=== PATIENT | female | born 2000 | race Caucasian/White ===

== ENCOUNTER 2018-03-15 20:05 | Emergency (ER) | payer OTHER ==
[~2018-03-15] VITALS: Ht 155.6 cm; Wt 57.0 kg
[2018-03-15 20:19] VITALS: TEMP 38.3; Ht 155.6 cm; Wt 57.0 kg
[2018-03-15] MEDS ORDERED: SODIUM CHLORIDE 0.9% 1000ML 1,000 ML IV STA ×2 (20:32)
[2018-03-15] MEDS ORDERED: BCPILLS PO (20:46)
[2018-03-15] MEDS ORDERED: PSEU30TA3 PO (20:46)
[2018-03-15] MEDS ORDERED: OSEL45CA PO (20:46)
[2018-03-15] MEDS ORDERED: MULTTAB PO (20:46)
[2018-03-15] MEDS ORDERED: IBUP-1050 PO (20:46)
[2018-03-15] MEDS ORDERED: ONDANSETRON INJ 2 MG/ML 2 ML VIAL IV STA (20:50)
[2018-03-15 21:07] LABS: HEMATOCRIT 39.6 % (37-47); HEMOGLOBIN 13.5 g/dL (12.0-16.0); MEAN CELL VOLUME 85.5 fL (80-100); MEAN CORPUSCULAR HEMOGLOBIN 29.2 pg (25-34); MEAN CORPUSCULAR HGB CONC 34.1 g/dl (32-36); MEAN PLATELET VOLUME 10.7 fL (7.4-10.4); PLATELET COUNT 240 K/uL (130-400); RED CELL DISTRIBUTION WIDTH CV 13.3 % (11.5-14.5); RED CELL DISTRIBUTION WIDTH SD 41.9 fL (36.4-46.3); WHITE BLOOD COUNT 9.01 K/uL (4.8-10.8)
[2018-03-15 21:29] LABS: ALBUMIN 3.8 gm/dl (3.4-5.0); CALCIUM 8.9 mg/dl (8.5-10.1); CREATININE 0.96 mg/dl (0.60-1.20); POTASSIUM 3.7 mmol/L (3.5-5.1)
[2018-03-15 21:32] LABS: TOTAL PROTEIN 8.3 gm/dl (6.4-8.2)
[2018-03-15 21:35] LABS: BASO % 0.2 %; BASO ABS # 0.02 K/uL (0-0.2); EOS % 0.1 %; EOS ABS # 0.01 K/uL (0-0.5); IG# 0.02 K/uL (0.00-0.02); LYMPH % 14.7 %; LYMPH ABS # 1.32 K/uL (1.2-3.4); MONO % 10.4 %; MONO ABS # 0.94 K/uL (0.11-0.59); NEUT % 74.4 %
[2018-03-15 21:47] LABS: INFLUENZA B ANTIGEN Neg for Influ B (NEG)
[2018-03-15] MEDS ORDERED: KETOROLAC TROMETHAMINE 30 MG/ML VIAL IV STA (22:06)
[2018-03-15] MEDS ORDERED: ACETAMINOPHEN 500 MG TAB PO STA (22:06)
[2018-03-15] MEDS ORDERED: AMOXICILLIN 250 MG CAP PO STA (22:28)
--- NOTE | 2018-03-15 22:28 | EMERGENCY ROOM VISIT NOTE ---
History Report prepared by Blanche: Prema Goss Under the Supervision of: Dr. Mynor Che M.D. First contact with patient: 20:31 Chief Complaint: FEVER Stated Complaint: FEVER,VOMITING SINCE 8:30 LAST NIGHT History of Present Illness The patient is a 17 year old female who presents to the Emergency Room with complaints of worsening generalized illness beginning on Wednesday, two days ago. The patient reports a fever, body aches, nasal congestion, abdominal pain, nausea, sorethroat, and a productive cough. She reports she was seen by [facility] yesterday who clinically diagnosed her with the flu and was given Tamiflu. The patient reports she has been vomiting since 8:30pm last night. She reports she started vomiting an hour after she took the Tamiflu. The patient took Motrin this morning. The patient is on control. She denies any allergies to medications. Pt denies LOC, headache, diaphoresis, visual changes, neck pain, chest pain, breathing difficulties, back pain, melena, hematochezia, urinary symptoms, numbness, weakness, lymphadenopathy, rash, or other complaints. Source of History: patient Onset: two days ago Position: other (generalized) Quality: other (illness) Timing: worsening Associated Symptoms: + fevers, + sorethroat, + cough, + nausea, + vomiting, + abdominal pain Review of Systems See HPI for pertinent positives and negatives. A total of ten systems were reviewed and were otherwise negative. Past Medical & Surgical Medical Problems: (1) No Known Active Medical Problems Family History Patient reports no known family medical history. Social History Smoking Status: Never Smoker Housing Status: lives with roommate Occupation Status: [place] [place] [employer] student Current/Historical Medications Scheduled Amoxicillin (Amoxil), 500 MG PO TID Control Pills ( Control Pills), 1 TAB PO DAILY Multivitamins/Minerals (Mvi With Minerals), 1 TAB PO DAILY Oseltamivir Phosphate (Tamiflu), 1 TAB PO BID Pseudoephedrine Hcl (Sudafed Nasal Decongestan), 1 TAB PO PRN UD Scheduled PRN Ibuprofen (Advil), 400 MG PO Q6 PRN for Pain or Fever Physical Exam Vital Signs Date Time Temp Pulse Resp B/P (MAP) Pulse Ox O2 Delivery O2 Flow Rate FiO2 03/15/18 23:07 93 114/61 98 03/15/18 22:14 95 126/64 98 Room Air 03/15/18 20:19 38.3 128 18 121/78 98 Room Air Physical Exam GENERAL: Awake, alert, mildly ill appearing, no distress HEAD: Normocephalic, atraumatic. No edema. EYES: Normal conjunctiva. Sclera non-icteric. EARS: Right TM normal. Left TM normal. NOSE: Mild congestion. OROPHARYNX: Lips, tongue, and mucosa unremarkable. No erythema or exudate. NECK: Supple. No nuchal rigidity. FROM. No adenopathy. Negative jolt accentuation test. RESPIRATORY: CTA bilaterally. No wheezes rales or rhonchi. Normal respiratory effort. CARDIAC: Borderline tachycardic rate. Normal rhythm. No murmurs. No rubs. GI: mild epigastric tenderness, no RUQ tenderness, no rebound, no guarding. NEURO: Normal sensorium. Normal speech. SKIN: No rash or jaundice noted. Medical Decision & Procedures Laboratory Results 03/15/18 20:45 Red Blood Count 4.63, Mean Corpuscular Volume 85.5, Mean Corpuscular Hemoglobin 29.2, Mean Corpuscular Hemoglobin Concent 34.1, Mean Platelet Volume 10.7, Neutrophils (%) (Auto) 74.4, Lymphocytes (%) (Auto) 14.7, Monocytes (%) (Auto) 10.4, Eosinophils (%) (Auto) 0.1, Basophils (%) (Auto) 0.2, Neutrophils # (Auto ) 6.70, Lymphocytes # (Auto) 1.32, Monocytes # (Auto) 0.94, Eosinophils # (Auto ) 0.01, Basophils # (Auto) 0.02 03/15/18 20:45 Test 03/15/18 20:35 03/15/18 20:45 03/15/18 20:47 Urine Color DK YELLOW Urine Appearance CLOUDY (CLEAR) Urine pH 5.0 (4.5-7.5) Urine Specific [place] 1.029 (1.000-1.030) Urine Protein 1+ (NEG) Urine Glucose (UA) NEG (NEG) Urine Ketones 3+ (NEG) Urine Occult Blood 2+ (NEG) Urine Nitrite NEG (NEG) Urine Bilirubin NEG (NEG) Urine Urobilinogen NEG (NEG) Urine Leukocyte Esterase MODERATE (NEG) Urine WBC (Auto) >30 /hpf (0-5) Urine RBC (Auto) 5-10 /hpf (0-4) Urine Hyaline Casts (Auto) 10-30 /lpf (0-5) Urine Epithelial Cells (Auto) >30 /lpf (0-5) Urine Bacteria (Auto) 2+ (NEG) White Blood Count 9.01 K/uL (4.8-10.8) Red Blood Count 4.63 M/uL (4.2-5.4) Hemoglobin 13.5 g/dL (12.0-16.0) Hematocrit 39.6 % (37-47) Mean Corpuscular Volume 85.5 fL (80-100) Mean Corpuscular Hemoglobin 29.2 pg (25-34) Mean Corpuscular Hemoglobin Concent 34.1 g/dl (32-36) Platelet Count 240 K/uL (130-400) Mean Platelet Volume 10.7 fL (7.4-10.4) Neutrophils (%) (Auto) 74.4 % Lymphocytes (%) (Auto) 14.7 % Monocytes (%) (Auto) 10.4 % Eosinophils (%) (Auto) 0.1 % Basophils (%) (Auto) 0.2 % Neutrophils # (Auto) 6.70 K/uL (1.4-6.5) Lymphocytes # (Auto) 1.32 K/uL (1.2-3.4) Monocytes # (Auto) 0.94 K/uL (0.11-0.59) Eosinophils # (Auto) 0.01 K/uL (0-0.5) Basophils # (Auto) 0.02 K/uL (0-0.2) RDW Standard Deviation 41.9 fL (36.4-46.3) RDW Coefficient of Variation 13.3 % (11.5-14.5) Immature Granulocyte % (Auto) 0.2 % Immature Granulocyte # (Auto) 0.02 K/uL (0.00-0.02) Ovalocytes 1+ Anion Gap 8.0 mmol/L (3-11) Est Creatinine Clear Calc Drug Dose 72.0 ml/min Estimated GFR () 99.4 Estimated GFR (Non- 85.7 BUN/Creatinine Ratio 12.2 (10-20) Calcium Level 8.9 mg/dl (8.5-10.1) Total Bilirubin 0.4 mg/dl (0.2-1) Direct Bilirubin 0.1 mg/dl (0-0.2) Aspartate Amino Transf (AST/SGOT) 16 U/L (15-37) Alanine Aminotransferase (ALT/SGPT) 16 U/L (12-78) Alkaline Phosphatase 47 U/L (45-117) Total Protein 8.3 gm/dl (6.4-8.2) Albumin 3.8 gm/dl (3.4-5.0) Lipase 276 U/L (73-393) Human Chorionic Gonadotropin, Qual NEG (NEG) Influenza Type A Antigen Neg for Influ A (NEG) Influenza Type B Antigen Neg for Influ B (NEG) Laboratory results reviewed by me Medications Administered Medications (Trade) Dose Ordered Sig/Radha Route Start Time Stop Time Status Last Admin Dose Admin Sodium Chloride 1,000 ml @ 125 mls/hr Q8H STAT IV 03/15/18 20:32 03/16/18 04:31 03/15/18 21:25 125 MLS/HR Sodium Chloride 1,000 ml @ 999 mls/hr Q1H1M STAT IV 03/15/18 20:32 03/15/18 21:32 DC 03/15/18 20:51 999 MLS/HR Ondansetron HCl (Zofran Inj) 4 mg NOW STAT IV 03/15/18 20:50 03/15/18 20:51 DC 03/15/18 20:58 4 MG Ketorolac Tromethamine (Toradol Inj) 15 mg NOW STAT IV 03/15/18 22:06 03/15/18 22:07 DC 03/15/18 22:12 15 MG Acetaminophen (Tylenol Tab) 1,000 mg NOW STAT PO 03/15/18 22:06 03/15/18 22:08 DC 03/15/18 22:11 1,000 MG Amoxicillin (Amoxil Cap) 1,000 mg NOW STAT PO 03/15/18 22:28 03/15/18 22:31 DC 03/15/18 22:41 1,000 MG Ondansetron HCl (ZOFRAN ODT 4MG Home Pack) 1 homepack UD ONCE PO 03/15/18 22:45 03/15/18 22:46 DC 03/15/18 22:41 1 HOMEPACK ED Course 2043: The patient was evaluated in room C4. A complete history and physical exam was performed. 2031: Ordered Sodium Chloride 1000 ml @ 999 mls/hr IV, Sodium Chloride 1000 ml @ 125 mls/hr IV. 2049: Ordered Zofran Inj 4 mg IV. 2131: I updated the patient on her test results. She is feeling much better. Abdominal pain resolved. We will do a PO challenge. 2209: Patient was reevaluated. She is doing well with her oral challenge. Tylenol and Toradol were given for her fever. Her mother called and the patient gave permission to speak to her. I discussed the patient's history, presentation, treatment and recommended outpatient course with her. She felt comfortable with this. I gave my usual and customary discussion regarding this issue. Medical Decision Triage Nursing notes reviewed and agree them. Additional history obtained from the patient's mother. The patient's history was concerning for fever, vomiting, and recent initiation of Tamiflu for suspected influenza. Differential diagnosis: Etiologies such as influenza, upper respiratory infection, viral syndrome, sinusitis,otitis, pharyngitis, pneumonia,meningitis, urinary tract infection, sepsis, bacteremia, medication side effect, gastroenteritis, as well as others were entertained. Physical examination: As above. Benign abdomen. Moderate nasal congestion present. Ears and throat unremarkable. ER treatment provided: IV normal saline IV Zofran On reassessment the patient felt better. Oral Tylenol IV Toradol 15 mg On reassessment the patient was doing well. Oral amoxicillin Diagnostics interpreted by me: The labs revealed an unremarkable CBC and chemistry panel. The patient's influenza testing is negative. She has findings concerning for UTI. She is not . Imaging studies: Deferred The patient has flulike symptoms but appears to also have UTI. She will be treated with amoxicillin. This will cover her sinuses as well as her urine. Chest imaging was felt to be unnecessary as she has really minimal pulmonary symptoms at this time. She may have had the vomiting related to the Tamiflu. She has a benign abdomen. Her vomiting stopped with the Zofran. She will be sent home with Zofran. She will stop the Tamiflu. I discussed this with her and her mother. They felt comfortable with the plan. By the evaluation outlined above emergent etiologies such as otitis, pharyngitis, pneumonia, meningitis, intra-abdominal infection, sepsis, bacteremia, as well as others were deemed relatively unlikely. The patient and mother were informed about the findings as listed above. All questions were answered and they were pleased with the treatment. Return instructions were outlined and the patient was discharged in stable condition. Outpatient prescription management: Amoxicillin Zofran Referral: The patient was referred back to her primary care physician for follow-up in 1- 2 days for a recheck of the current condition. Medication Reconcilliation Current Medication List: was personally reviewed by me Blood Pressure Screening Patient's blood pressure: Normal blood pressure Impression Primary Impression: Fever Additional Impressions: Influenza-like symptoms UTI (urinary tract infection) Scribe Attestation The scribe's documentation has been prepared under my direction and personally reviewed by me in its entirety. I confirm that the note above accurately reflects all work, treatment, procedures, and medical decision making performed by me. Departure Information Dispostion Home / Self-Care Prescriptions Amoxicillin (AMOXIL) 500 Mg Cap 500 MG PO TID, #28 CAP Prov: Mynor Che MD 03/15/18 Referrals No Doctor, Assigned (PCP) Patient Instructions My [facility] Additional Instructions Amoxicillin 500 mg: one capsule 3 times a day for 10 days. All antibiotics can cause diarrhea. If this occurs and you feel worse or it does not resolve in 1- 2 days follow up with your doctor or return to the Emergency Department as this could be signs of serious underlying problems. Any medication can cause an allergic reaction, stop the pills immediately and return to the ER for rash, hives, breathing difficulties, or swelling. Zofran 4 mg oral dissolving tablets: take one tablet and allow it to melt in your mouth every 4 hours as needed for nausea. Acetaminophen(Tylenol) may be used for fever or pain. Use 1000mg every six hours as needed. Avoid using more than 4000mg in a 24 hour period. (AND/OR) Ibuprofen(Motrin, Advil) may be used for fever or pain. Use 600mg every six hours as needed. Take with food. Avoid using more than 2400mg in a 24 hour period. Do not use 2400mg per day for more than three consecutive days without physician direction. Prolonged inappropriate use can lead to stomach upset or ulcers. Pseudoephedrine(Sudaphed): 30-60mg every 6 hours as needed for nasal congestion. Do not take this with other stimulant products or supplements. Stop the Tamiflu Rest and drink plenty of fluids. Controlling your fever with Tylenol and Ibuprofen as above will make you feel better. Wash your hands after nose blowing, sneezing, or coughing. Most germs are spread through contact, therefore improper hygiene may result in your close contacts and loved ones becoming ill just like you. Return to the ER for severe headache, neck stiffness, chest pain, difficulty breathing, fevers, vomiting, worsening of your condition, or as needed. Follow up with S this week for a recheck of your current condition. Problem Qualifiers
[2018-03-15] MEDS ORDERED: ONDANSETRON HOME PACK 4MG OD TAB PO ONE (22:45)
[2018-03-15] MEDS ORDERED: AMOX500C3 PO (22:51)
[2018-03-15 23:07] VITALS: BP 114/61; PULSE 93; O2SAT 98
[2018-03-16] MEDS ORDERED: ONDA4TAB10 SL (16:24)
[2018-03-16] MEDS ORDERED: FAMO20TA9 PO (16:24)
== END 2018-03-15 23:08 | disposition home or self-care (01) ==
LOC: C.EDB 20:06 → C.EDC 23:08
DX: N39.0 Urinary tract infection, site not specified (principal); R09.81 Nasal congestion; M79.1 Myalgia; J02.9 Acute pharyngitis, unspecified; R05 Cough; R11.2 Nausea with vomiting, unspecified; Z79.3 Long term (current) use of hormonal contraceptives

== ENCOUNTER 2018-03-16 09:32 | Emergency (ER) | payer OTHER ==
[~2018-03-16] VITALS: Ht 154.9 cm; Wt 57.5 kg
[~2018-03-16 09:32] MED LIST: AMOX500C3 PO; BCPILLS PO; IBUP-1050 PO; MULTTAB PO; OSEL45CA PO; PSEU30TA3 PO
[2018-03-16 09:37] VITALS: Ht 154.9 cm; Wt 57.5 kg
[2018-03-16] MEDS ORDERED: ONDANSETRON INJ 2 MG/ML 2 ML VIAL IV STA (09:53)
[2018-03-16] MEDS ORDERED: SODIUM CHLORIDE 0.9% 1000ML 2,000 ML IV STA (09:53)
[2018-03-16] MEDS ORDERED: FAMOTIDINE 20 MG TAB PO ONE (10:00)
[2018-03-16 10:49] LABS: BASO % 0.2 %; BASO ABS # 0.02 K/uL (0-0.2); EOS % 0.2 %; EOS ABS # 0.02 K/uL (0-0.5); HEMATOCRIT 38.5 % (37-47); HEMOGLOBIN 12.9 g/dL (12.0-16.0); IG# 0.02 K/uL (0.00-0.02); LYMPH % 17.7 %; LYMPH ABS # 1.46 K/uL (1.2-3.4); MEAN CELL VOLUME 85.9 fL (80-100); MEAN CORPUSCULAR HEMOGLOBIN 28.8 pg (25-34); MEAN CORPUSCULAR HGB CONC 33.5 g/dl (32-36); MEAN PLATELET VOLUME 10.8 fL (7.4-10.4); MONO % 9.1 %; MONO ABS # 0.75 K/uL (0.11-0.59); NEUT % 72.6 %; NEUT ABS # 5.99 K/uL (1.4-6.5); PLATELET COUNT 225 K/uL (130-400); RED CELL DISTRIBUTION WIDTH CV 13.4 % (11.5-14.5); RED CELL DISTRIBUTION WIDTH SD 42.4 fL (36.4-46.3); WHITE BLOOD COUNT 8.26 K/uL (4.8-10.8)
[2018-03-16 11:13] LABS: ALBUMIN 3.4 gm/dl (3.4-5.0); CALCIUM 8.9 mg/dl (8.5-10.1); CREATININE 0.83 mg/dl (0.60-1.20); POTASSIUM 3.7 mmol/L (3.5-5.1)
[2018-03-16 11:16] LABS: TOTAL PROTEIN 7.8 gm/dl (6.4-8.2)
[2018-03-16 11:36] LABS: INFLUENZA A PCR Neg for Influ A (NEG); INFLUENZA B PCR Neg for Influ B (NEG)
[2018-03-16] MEDS ORDERED: GI COCKTAIL PO STA (11:59)
[2018-03-16] MEDS ORDERED: LIDOCAINE HCL 2% VISC SOLN 20 ML UDC ONE (12:04)
[2018-03-16] MEDS ORDERED: ALUMINUM/MAGNESIUM SUSP 30 ML UDC ONE (12:04)
[2018-03-16] MEDS ORDERED: FAMOTIDINE 20MG/5ML IV PUSH IV STA (12:17)
[2018-03-16] MEDS ORDERED: D5W AND NSS 1,000 ML IV STA (13:04)
[2018-03-16 13:53] VITALS: TEMP 37.5
--- NOTE | 2018-03-16 16:13 | EMERGENCY ROOM VISIT NOTE ---
History Report prepared by Mathewibbrit: Alberto Mendosa Under the Supervision of: Dr. Jacoby Murray M.D. First contact with patient: 09:46 Chief Complaint: VOMITING Stated Complaint: FEVER,VOMITING History of Present Illness The patient is a 17 year old female who presents to the Emergency Room with complaints of intermittent vomiting beginning yesterday. She also complains of body aches, fevers (100 degrees), cough, and stuffy nose which all began three days ago. The patient developed abdominal pain today. She states that she is unable to eat or drink without vomiting. The patient was seen in the ED last night for similar symptoms and was diagnosed with UTI. She had a negative test, and unremarkable blood work. She had a negative influenza test. The patient was discharged on Zofran and Amoxicillin (has not taken Amoxicillin today due to fear of vomiting). She was placed on Tamiflu empirically by [facility] two days ago, and was told to stop taking it in the ED last night. She notes that her vomiting began after taking the Tamiflu. The patient called [facility] today about her symptoms and was told to present to the ED. She denies vaginal discharge. She denies recent alcohol, marijuana, cigarette or other drug use. Source of History: patient Onset: Yesterday Quality: other (vomiting) Timing: intermittent Modifying Factors (Worsening): eating, drinking Associated Symptoms: + fevers, + cough, + abdominal pain Note: Positive: stuffy nose and body aches. Negative: vaginal discharge. Review of Systems See HPI for pertinent positives and negatives. A total of ten systems were reviewed and were otherwise negative. Past Medical & Surgical Medical Problems: (1) No Known Active Medical Problems Family History Patient reports no known family medical history. Social History Smoking Status: Never Smoker Housing Status: lives with roommate Occupation Status: [employer] student Current/Historical Medications Scheduled Amoxicillin (Amoxil), 500 MG PO TID Control Pills ( Control Pills), 1 TAB PO DAILY Famotidine (Pepcid), 20 MG PO BID Multivitamins/Minerals (Mvi With Minerals), 1 TAB PO DAILY Ondasetron Odt (Zofran Odt), 4 MG SL Q6H Oseltamivir Phosphate (Tamiflu), 1 TAB PO BID Pseudoephedrine Hcl (Sudafed Nasal Decongestan), 1 TAB PO PRN UD Scheduled PRN Ibuprofen (Advil), 400 MG PO Q6 PRN for Pain or Fever Allergies Coded Allergies: No Known Allergies (Unverified , 03/16/18) Physical Exam Vital Signs Date Time Temp Pulse Resp B/P (MAP) Pulse Ox O2 Delivery O2 Flow Rate FiO2 03/16/18 16:42 96 16 125/66 99 Room Air 03/16/18 15:24 92 18 117/76 98 Room Air 03/16/18 13:53 37.5 88 18 105/88 99 Room Air 03/16/18 12:26 91 18 119/61 99 Room Air 03/16/18 11:05 87 18 102/86 Room Air 03/16/18 09:37 37.2 102 18 119/71 98 Room Air Physical Exam GENERAL: Awake, alert, fatigued-appearing, in no distress HENT: Normocephalic, atraumatic. Oropharynx unremarkable other than dry mucous membranes. EYES: Normal conjunctiva. Sclera non-icteric. NECK: Supple. No nuchal rigidity. FROM. No JVD. RESPIRATORY: Clear to auscultation. CARDIAC: Tachycardic rate, normal rhythm. Extremities warm and well perfused. Pulses equal. ABDOMEN: Soft, non-distended. Mild epigastric discomfort however no discrete tenderness to palpation. No rebound or guarding. No masses. RECTAL: Deferred. MUSCULOSKELETAL: Chest examination reveals no tenderness. The back is symmetrical on inspection without obvious abnormality. There is no CVA tenderness to palpation. No joint edema. LOWER EXTREMITIES: Calves are equal size bilaterally and non-tender. No edema. No discoloration. NEURO: Normal sensorium. No sensory or motor deficits noted. SKIN: No rash or jaundice noted. Medical Decision & Procedures Laboratory Results 03/16/18 10:25 Red Blood Count 4.48, Mean Corpuscular Volume 85.9, Mean Corpuscular Hemoglobin 28.8, Mean Corpuscular Hemoglobin Concent 33.5, Mean Platelet Volume 10.8, Neutrophils (%) (Auto) 72.6, Lymphocytes (%) (Auto) 17.7, Monocytes (%) (Auto) 9.1, Eosinophils (%) (Auto) 0.2, Basophils (%) (Auto) 0.2, Neutrophils # (Auto) 5.99, Lymphocytes # (Auto) 1.46, Monocytes # (Auto) 0.75, Eosinophils # (Auto) 0.02, Basophils # (Auto) 0.02 03/16/18 10:25 Test 03/16/18 10:25 White Blood Count 8.26 K/uL (4.8-10.8) Red Blood Count 4.48 M/uL (4.2-5.4) Hemoglobin 12.9 g/dL (12.0-16.0) Hematocrit 38.5 % (37-47) Mean Corpuscular Volume 85.9 fL (80-100) Mean Corpuscular Hemoglobin 28.8 pg (25-34) Mean Corpuscular Hemoglobin Concent 33.5 g/dl (32-36) Platelet Count 225 K/uL (130-400) Mean Platelet Volume 10.8 fL (7.4-10.4) Neutrophils (%) (Auto) 72.6 % Lymphocytes (%) (Auto) 17.7 % Monocytes (%) (Auto) 9.1 % Eosinophils (%) (Auto) 0.2 % Basophils (%) (Auto) 0.2 % Neutrophils # (Auto) 5.99 K/uL (1.4-6.5) Lymphocytes # (Auto) 1.46 K/uL (1.2-3.4) Monocytes # (Auto) 0.75 K/uL (0.11-0.59) Eosinophils # (Auto) 0.02 K/uL (0-0.5) Basophils # (Auto) 0.02 K/uL (0-0.2) RDW Standard Deviation 42.4 fL (36.4-46.3) RDW Coefficient of Variation 13.4 % (11.5-14.5) Immature Granulocyte % (Auto) 0.2 % Immature Granulocyte # (Auto) 0.02 K/uL (0.00-0.02) Anion Gap 9.0 mmol/L (3-11) Est Creatinine Clear Calc Drug Dose 88.9 ml/min Estimated GFR () 118.5 Estimated GFR (Non- 102.2 BUN/Creatinine Ratio 14.9 (10-20) Calcium Level 8.9 mg/dl (8.5-10.1) Total Bilirubin 0.4 mg/dl (0.2-1) Direct Bilirubin 0.1 mg/dl (0-0.2) Aspartate Amino Transf (AST/SGOT) 15 U/L (15-37) Alanine Aminotransferase (ALT/SGPT) 15 U/L (12-78) Alkaline Phosphatase 43 U/L (45-117) Total Protein 7.8 gm/dl (6.4-8.2) Albumin 3.4 gm/dl (3.4-5.0) Lipase 262 U/L (73-393) Influenza Type A (RT-PCR) Neg for Influ A (NEG) Influenza Type B (RT-PCR) Neg for Influ B (NEG) Laboratory results reviewed by me Medications Administered Medications (Trade) Dose Ordered Sig/Radha Route Start Time Stop Time Status Last Admin Dose Admin Sodium Chloride 2,000 ml @ 999 mls/hr Q2H1M STAT IV 03/16/18 09:53 03/16/18 11:53 DC 03/16/18 10:20 999 MLS/HR Ondansetron HCl (Zofran Inj) 4 mg NOW STAT IV 03/16/18 09:53 03/16/18 09:56 DC 03/16/18 10:21 4 MG Famotidine (Pepcid Tab) 20 mg NOW ONCE PO 03/16/18 10:00 03/16/18 10:01 DC 03/16/18 10:21 20 MG Al Hydroxide/Mg Hydroxide (Maalox Susp) 30 ml STK-MED ONCE .ROUTE 03/16/18 12:04 03/16/18 12:05 DC 03/16/18 12:06 30 ML Lidocaine HCl (Viscous Lidocaine 2% Soln) 20 ml STK-MED ONCE .ROUTE 03/16/18 12:04 03/16/18 12:05 DC 03/16/18 12:06 10 ML Famotidine (Pepcid 20mg Iv Push) 20 mg ONE STAT IV 03/16/18 12:17 03/16/18 12:18 DC 03/16/18 12:25 20 MG Dextrose/Sodium Chloride 1,000 ml @ 999 mls/hr Q1H1M STAT IV 03/16/18 13:04 03/16/18 14:04 DC 03/16/18 13:27 999 MLS/HR Sodium Chloride ([place] Nasal [place]) 2 sprays NOW ONCE NA 03/16/18 16:30 03/16/18 16:31 DC 03/16/18 16:56 2 SPRAYS Guaifenesin (Mucinex Contr Rel Tab) 600 mg NOW STAT PO 03/16/18 16:27 03/16/18 16:29 DC 03/16/18 16:56 600 MG ED Course 09: The patient was evaluated in room A4B. A complete history and physical exam was performed. 1206: I spoke with the patients mother over the phone. I updated her on the patients case. She verbalized agreement and understanding of the treatment plan. 1632: I reevaluated the patient. Discussed results and discharge instructions: she verbalized understanding and agreement. The patient is ready for discharge. Medical Decision I reviewed the patient's past medical history, medications, and the nursing notes as described above. Differential diagnosis: Etiologies such as gastroenteritis, food borne illness, infections, appendicitis , diverticulitis, inflammatory bowel disease, obstruction, GI bleed, biliary pathology, as well as others were entertained. The patient is a 17-year-old woman who presents emergency department with persistent nausea and vomiting after being seen in the ED yesterday for similar symptoms diagnosed with a viral illness per hpi. On arrival the patient is fatigued and uncomfortable but no acute distress, afebrile stable vital signs. On exam the patient has mild epigastric discomfort but no discrete tenderness. Negative Francois sign. Bedside ultrasound of the patient's gallbladder negative for gallstones or pericholecystic fluid. Labs unremarkable including WBC within normal limits and chemistry with no significant acidosis. Glucose was in the 60s and the patient was given Gatorade. The patient was given IV fluid hydration, Zofran, Pepcid. I did review the patient's case with her mother over the phone and father at the bedside, both who were very pleasant. Of note , it did take some time given the patient was somewhat challenging and complying with recommendations. For instance, she complained that the IV bothered her and declined additional IV fluid hydration until convinced by her parents to continue with the treatment. She did however persistently refused the GI cocktail. Nonetheless, the patient continued to improve with IV fluid hydration including D5 NS. She was tolerating p.o. fluids and eating crackers without subsequent symptoms. Thus given the patient's improvement and otherwise negative bedside ultrasound and reassuring lab results there is no indication for further imaging. In particular the patient has no lower abdominal symptoms and appendicitis is not likely. Thus, both the patient and father (and mother via phone) at the bedside agreed that she had improved and were okay to go home. Medication Reconcilliation Current Medication List: was personally reviewed by me Blood Pressure Screening Patient's blood pressure: Normal blood pressure Blood pressure disposition: Did not require urgent referral Impression Primary Impression: Viral illness Scribe Attestation The scribe's documentation has been prepared under my direction and personally reviewed by me in its entirety. I confirm that the note above accurately reflects all work, treatment, procedures, and medical decision making performed by me. Departure Information Dispostion Home / Self-Care Prescriptions Famotidine (PEPCID) 20 Mg Tab 20 MG PO BID for 7 Days, #14 TAB Prov: Jacoby Murray M.D. 03/16/18 Ondasetron Odt (ZOFRAN ODT) 4 Mg Tab 4 MG SL Q6H for Nausea, #10 TAB Prov: Jacoby Murray M.D. 03/16/18 Referrals [facility] (PCP) Patient Instructions ED Gastritis, ED Viral Syndrome, [facility] Additional Instructions Please follow up with S tomorrow for re-evaluation. You likely have a viral infection/gastritis. Otherwise, your exam and lab results did not show signs of an emergent condition at this time. Acetaminophen or ibuprofen for pain and fevers as needed. Zofran as needed for nausea. Pepcid for acid reduction/GI upset with TUMS as needed. Saline nasal spray and mucinex to help thin a clear mucus as needed. BRAT diet. Drink plenty of fluids to ensure hydration. Return to the emergency department for worsening symptoms as described in the accompanying instructions.
[2018-03-16] MEDS ORDERED: FAMO20TA9 PO (16:24)
[2018-03-16] MEDS ORDERED: ONDA4TAB10 SL (16:24)
[2018-03-16] MEDS ORDERED: GUAIFENESIN 600 MG TABCR PO STA (16:27)
[2018-03-16] MEDS ORDERED: SODIUM CHLORIDE 0.65% NA SOLN 45 ML (OCEAN) ONE (16:30)
[2018-03-16 16:42] VITALS: BP 125/66; PULSE 96; O2SAT 99
== END 2018-03-16 17:10 | disposition home or self-care (01) ==
LOC: C.EDB 09:33 → C.EDA 17:10
DX: B34.9 Viral infection, unspecified (principal)